=== PATIENT | female | born 1970 | race Caucasian/White ===

== ENCOUNTER 2018-06-19 12:21 | Emergency (ER) | payer MEDICAID ==
--- NOTE | 2018-06-19 12:58 | RADIOLOGY REPORT (SQ) ---
EXAM DESCRIPTION: FOOT LEFT COMPLETE COMPLETED DATE/TIME: 06/19/2018 12:45 pm REASON FOR STUDY: dropped fencing on foot. COMPARISON: None. NUMBER OF VIEWS: Three views. TECHNIQUE: AP, lateral and oblique radiographic images acquired of the left foot. LIMITATIONS: None. FINDINGS: MINERALIZATION: Normal. BONES: On the lateral image there is an osseous density on the dorsal surface of the foot at the base of the metatarsals. On the AP view this appears to be well corticated between the base of the 1st a nd 2nd metatarsal. JOINTS: No effusions. SOFT TISSUES: Dorsal soft tissue swelling. No foreign body. OTHER: No other significant finding. IMPRESSION: SMALL OSSEOUS DENSITY AT THE BASE OF THE 1ST AND 2ND METATARSALS. THIS COULD BE A CHRON IC FINDING ALTHOUGH CANNOT EXCLUDE A SMALL AVULSION FRACTURE. THERE IS DORSAL SOFT TISSUE SWELLING. TECHNICAL DOCUMENTATION: JOB ID: [id number] [employer]- All Rights Reserved Reading location - IP/workstation name: [email or web address]
--- NOTE | 2018-06-19 14:46 | RADIOLOGY REPORT (SQ) ---
EXAM DESCRIPTION: CT LT LOWER EXTREMITY WITHOUT COMPLETED DATE/TIME: 06/19/2018 2:23 pm REASON FOR STUDY: crush injury to L foot?compartment syndrome, etc COMPARISON: X-ray dated 06/19/2018. TECHNIQUE: Axial imaging performed through the left foot with reformatted coronal and sagittal imagi ng windowed for bone and soft tissues. Images saved to PACS. 3D IMAGING: Were 3D images as MIP, SSD, or volume rendering performed at the work station? No. All CT scanners at this facility use dose modulation, iterative reconstruction, and/or weight based d osing when appropriate to reduce radiation dose to as low as reasonably achievable (ALARA). [facility]: Dose Right [facility]: CareDose [facility]: Dose Right [facility]: Teradose 4D [facility]: GetLikeminds LIMITATIONS: None. RADIATION DOSE: CT Rad equipment meets quality standard of care and radiation dose reduction techniq ues were employed. CTDIvol: 4.1 mGy. DLP: 110 mGy-cm. mGy. FINDINGS: SOFT TISSUES: Diffuse edema in the subcutaneous soft tissues. Hematoma in the soft tissue s on the dorsal surface measuring 1.5 x 4 cm. BONES: No acute fracture. Small corticated ossicle between the base of the 1st and 2nd metatarsal. No dislocation. MINERALIZATION: Normal. OTHER: No other significant finding. IMPRESSION: SOFT TISSUE EDEMA WITH HEMATOMA ON THE DORSAL SURFACE OF THE FOOT. NO ACUTE FRACTURE OR OTHER SIGNIFICANT BONY FINDINGS. TECHNICAL DOCUMENTATION: JOB ID: [id number] Quality ID # [id number]: Final reports with documentation of one or more dose reduction techniques (e.g., Au tomated exposure control, adjustment of the mA and/or kV according to patient size, use of iterative reconstruction technique) 2010 [employer]- All Rights Reserved Reading location - IP/workstation name: [facility]-[email or web address]
[2018-06-19] MEDS ORDERED: DIPH/PERTUSS(ACELL)/TETANUS VAC/PF 0.5 ML SYR (>=10YO) IM ONE (16:05)
[2018-06-19] MEDS ORDERED: OXYCODONE-ACETAMINOPHEN 5-325 MG TABLET PO ONE (16:06)
--- NOTE | 2018-06-19 16:44 | ER Document Report ---
ED Extremity Problem, Lower - General Chief Complaint: Foot Pain Stated Complaint: LEFT FOOT PAIN Time Seen by Provider: 06/19/18 13:40 Mode of Arrival: Ambulatory Information source: Patient Notes: Patient is a 47-year-old female comes in emergency room with her with a complaint of left foot pain. Patient [place] scraped the top of her foot with a piece of fence and then yesterday she dropped a large fence post on top of her foot. She comes in today with a swollen very much and severe pain. She denies any other injuries and denies any other medical problems with the exception of hypothyroidism. TRAVEL OUTSIDE OF THE [place] IN LAST 30 DAYS: No - HPI Patient complains to provider of: Altered sensation, Injury, Pain, Swelling Location: Foot Occurred: Other - Yesterday Where: Home, Other - Technically her second home. Onset/Duration: Sudden, Worse Quality of pain: Fullness, Pressure, Sharp, Stabbing, Throbbing Severity: Severe Pain Level: 4 Context: Crush Recent injury: Yes Associated symptoms: Unable to bear weight. denies: Fever Exacerbated by: Hanging down, Movement - Touch, Walking Relieved by: Nothing - Related Data Allergies/Adverse Reactions: No Known Allergies Allergy (Verified 06/19/18 12:22) Past Medical History - General Information source: Patient Last Menstrual Period: 8 months ago she had an IUD placement - Social History Smoking Status: Never Smoker Cigarette use (# per day): No Chew tobacco use (# tins/day): No Smoking Education Provided: No Frequency of alcohol use: every other day Drug Abuse: None Lives with: Family Family History: Reviewed & Not Pertinent Patient has suicidal ideation: No Patient has homicidal ideation: No Renal/ Medical History: Denies: Hx Peritoneal Dialysis Review of Systems - Review of Systems Constitutional: No symptoms reported EENT: No symptoms reported Cardiovascular: No symptoms reported Respiratory: No symptoms reported Gastrointestinal: No symptoms reported Genitourinary: No symptoms reported Female Genitourinary: No symptoms reported Musculoskeletal: No symptoms reported, Joint pain, Muscle pain, Muscle stiffness Skin: See HPI, Change in color, Other Hematologic/Lymphatic: No symptoms reported Neurological/Psychological: No symptoms reported Physical Exam - Vital signs Vitals: Temp Pulse Resp BP Pulse Ox 98.8 F 89 16 176/101 H 98 06/19/18 12:35 06/19/18 12:35 06/19/18 12:35 06/19/18 12:35 06/19/18 12:35 Interpretation: Hypertensive - Notes Notes: Patient is a well-nourished well-developed 7-year-old female who is in moderate discomfort - General General appearance: Alert - HEENT Head: Normocephalic, Atraumatic Eyes: Normal - Respiratory Respiratory status: No respiratory distress Chest status: Nontender Breath sounds: Normal. No: Rales, Rhonchi, Stridor, Wheezing Chest palpation: Normal - Cardiovascular Rhythm: Regular Heart sounds: Normal auscultation Murmur: No - Extremities General upper extremity: Normal inspection, Nontender, Normal ROM, Normal strength General lower extremity: Tender, Edema, Other. No: Normal color, Normal ROM, Normal strength, Normal temperature, Normal weight bearing, Christa's sign Foot: Tender, Abrasion, Ecchymosis, Edema, Unable to bear weight, Other - Examination patient's left foot shows it to be severely swollen moderate edema throughout. Abrasion on top as discussed in skin. Dorsalis pedal pulse is present but faint. Patient has a cap refill but is reduced. The foot is dusky looking and very cold to touch. Pulse ox is done by 2 different nurses show the O2 sat to be 75-80. Decreased range of motion of the toes is also noted. There is no bruising noted on the sole of the foot. Concern for compartment syndrome or a fasciitis.. No: Instability, Laceration, Metatarsal compress. pain, Nail injury, Navicular tenderness, No evidence of FB, Puncture wound, Tender 5th metatarsal - Neurological Neuro grossly intact: Yes Cognition: Normal Orientation: AAOx4 Mena Coma Scale Eye Opening: Spontaneous [place] Coma Scale Verbal: Oriented [place] Coma Scale Motor: Obeys Commands Madison Coma Scale Total: 15 Speech: Normal Course - Re-evaluation Re-evalutation: 06/19/18 16:50 Patient is been somewhat complicated on her stay here. After initial evaluation I was concerned for compartment syndrome. I had Dr. Lora look at the patient and he felt the same as I that is possibility of compartment syndrome or fasciitis. We will send her to CT which showed soft tissue edema with hematoma on the dorsal surface of the foot no acute fractures or significant bony findings. We discussed that again and he requested that I contact the orthopedist carton filling machine operator. I contacted Dr. Jina Lara he came down and examined the patient and feels that this is a major contusion or a ligament rupture. He is informed her that she needs to keep it elevated at least for the next week. And follow-up with him. She informed him that she is from out of town and will be going home on Friday. He is told her that she is to follow- up with her primary care. Explained it simply to her that if it is a big bruise is going to get better rather quickly and she will be able to walk on it if it is a ligament she will not be able to walk on it. Also I am going to put her on an antibiotic because the abrasion on top of the foot looks like it is starting to become little infected. I have given patient copies of her readings and disc of her test. - Vital Signs Vital signs: Temp Pulse Resp BP Pulse Ox 98.8 F 89 16 176/101 H 98 06/19/18 12:35 06/19/18 12:35 06/19/18 12:35 06/19/18 12:35 06/19/18 12:35 Procedures - Immobilization Left Foot Pre-Proc Neuro Vasc Exam: Normal Immobilizer type: Short Leg Posterior Post-Proc Neuro Vasc Exam: Normal Alignment checked and good: Yes Discharge - Discharge Clinical Impression: Abrasion, Ligament rupture Contusion of left foot including toes Qualifiers: Encounter type: initial encounter Qualified Code(s): S90.32XA - Contusion of left foot, initial encounter; S90.122A - Contusion of left lesser toe(s) without damage to nail, initial encounter; S90.122A - Contusion of left lesser toe(s) without damage to nail, initial encounter Condition: Stable Disposition: HOME, SELF-CARE Instructions: Contusion ([facility]) Additional Instructions: Home and rest. Leave the splint in place for the next 3-4 days. Keep the foot elevated as much as possible. Monitor the color of the skin in the surrounding tissues where the abrasion is at. If you notice any red streaking or bruising of any type return to ER for recheck. You have been given the disc of your CT and x-ray you may take this to your primary care provider or your orthopedist been at home also you had been given the readings to go along with them. I have given something for pain in the antibiotics and at the pill for the yeast infection. If you should have any troubles or concerns over the time you are here return here for recheck. Elevate the foot ice the foot are the 2 zaragoza most important things you can do. Prescriptions: Fluconazole [Diflucan] 150 mg PO ONCE PRN #1 tablet PRN Reason: Oxycodone HCl/Acetaminophen [Percocet 5-325 mg Tablet] 1 tab PO Q4H PRN #12 tablet PRN Reason: Sulfamethoxazole/Trimethoprim [Bactrim Ds Tablet] 1 each PO BID #20 tablet
[2018-06-19 17:50] VITALS: BP 156/86
== END 2018-06-19 17:40 | disposition home or self-care (01) ==
LOC: ER 12:21
PROC: 2W3MX1Z Immobilization of Left Lower Extremity using Splint (ICD-10-PCS; principal; 2018-06-19)
DX: S93.602A Unspecified sprain of left foot, initial encounter (principal); S90.32XA Contusion of left foot, initial encounter; S90.122A Contusion of left lesser toe(s) without damage to nail, initial encounter; W22.09XA Striking against other stationary object, initial encounter; Y93.H2 Activity, gardening and landscaping; Y92.007 Garden or yard of unspecified non-institutional (private) residence as the place of occurrence of the external cause; Z23 Encounter for immunization
CPT/HCPCS: 90471; 90715; 99284